=== PATIENT | male | born 2000 | race Caucasian/White ===

== ENCOUNTER 2018-05-21 22:39 | Emergency (ER) | payer MEDICAID ==
[2018-05-21 22:39] VITALS: BMI 22.6
[2018-05-21 22:48] VITALS: O2SAT 99
[2018-05-21] MEDS ORDERED: Amoxicillin-Clav 875-125 mg Tab PO STA (23:36)
--- NOTE | 2018-05-21 23:36 | C.PDOC ---
History Of Present Illness 17 yo male presents to the ED for evaluation of right-sided earache that has been gradually tis morning. He admits to also having a sore throat and right neck swelling/pain for the past few days. patient denies high fever, ZAYAS, dizziness, vertigo, ear discharge, drooling, cough, dyspnea, SOB, wheezing, abd. pain, N/V, denies any other active complaints. Ambulate to ED for evaluation, not in any apparent distress. Time Seen by Provider: 05/21/18 22:40 Chief Complaint (Nursing): ENT Problem History Per: Patient Onset/Duration Of Symptoms: Hrs Current Symptoms Are (Timing): Still Present Quality (Mouth/Throat): Other (sore throat) Past Medical History Reviewed: Historical Data, Nursing Documentation, Vital Signs Vital Signs: Last Vital Signs Temp 97.9 F 05/22/18 00:12 Pulse 71 05/22/18 00:12 Resp 18 05/22/18 00:12 BP 115/71 05/22/18 00:12 Pulse Ox 99 05/22/18 01:11 - Medical History PMH: Asthma Surgical History: No Surg Hx - [facility] Procedures ADENOIDECTOMY (08/09/13) SUTURE OF LIP LACERATION (03/17/14) Family History: States: Unknown Family Hx - Social History Hx Tobacco Use: No Hx Alcohol Use: No Hx Substance Use: No - Immunization History Hx Tetanus Toxoid Vaccination: Yes Hx Influenza Vaccination: Yes Hx Pneumococcal Vaccination: Yes Review Of Systems Except As Marked, All Systems Reviewed And Found Negative. Constitutional: Negative for: Fever ENT: Positive for: Ear Pain, Throat Pain. Negative for: Ear Discharge, Nose Discharge Cardiovascular: Negative for: Chest Pain, Palpitations Respiratory: Negative for: Cough, Shortness of Breath, Wheezing Gastrointestinal: Negative for: Nausea, Vomiting, Abdominal Pain, Diarrhea Genitourinary: Negative for: Dysuria, Incontinence Skin: Negative for: Rash Neurological: Negative for: Weakness, Numbness, Headache, Dizziness Physical Exam - Physical Exam Appears: Well, Non-toxic, No Acute Distress Skin: Normal Color, Warm, Dry, No Rash Eye(s): bilateral: PERRL Ear(s): Right: TM Obscured By Wax (no canal edema or erythema, no discharge.), Bilateral: Other (NO mastoid tenderness B/L) Nose: No Flaring, No Discharge Oral Mucosa: Moist, No Drooling Tongue: Normal Appearing Lips: Normal Appearing Throat: Erythema (pharyngeal erythema), No Exudate, No Drooling Neck: Normal ROM, Trachea Midline, Supple, Other ((-) meningeal sign) Lymphatic: Adenopathy (Right anterior cervical. NO edema or erythema.) Cardiovascular: Rhythm Regular Respiratory: No Decreased Breath Sounds, No Accessory Muscle Use, No Stridor, No Wheezing Gastrointestinal/Abdominal: Soft, No Tenderness Extremity: Normal ROM Neurological/Psych: Oriented x3, Normal Speech ED Course And Treatment O2 Sat by Pulse Oximetry: 99 (RA) Pulse Ox Interpretation: Normal Progress Note: Patient was given Amoxicillin (10 mg PO) and Motrin (600 mg PO) in ED. On re-eavluation, pt appears improved. Afebrile, hemodynamicaly stable. NOn-toxic, tolerate Po well in Ed. PulseOx 100% RA. ENT: exam c/w Right cerumen impaction. No ear canal edema or erythema, no mastoid tenderness/ edema/erythema. Mod pharyngeal edema and erythema. uvual midline. Right ante cervical lymphodenopathy. Neck: SUpple, (-) meningeal sign. Lungs: CTA B/L, BS equal B/L. Abd: Benign. neurologicaly intact. Pt has lcinical findings c/ w acute pharyngitis. Pt advised and ref. to F/u with PMD, ENT in 2-3 days for re-eval. return to ED if any worsening or new changes. Disposition Counseled Patient/Family Regarding: Diagnosis, Need For Followup, Rx Given - Disposition Referrals: Etienne Martinez MD [Staff Provider] - Disposition: HOME/ ROUTINE Disposition Time: 23:36 Condition: STABLE Additional Instructions: Encourage fluids Take medication as prescribed Follow up with PMD, ENT In 2-3 days for re-evaluation. return to ED if any worsening or new changes. Prescriptions: Amoxicillin/Clavulanate [Augmentin 875 MG-125 MG] 1 tab PO BID #14 tab Carbamide Peroxide [Debrox] 2 drop OT DAILY #1 bottle Ibuprofen [Motrin] 1 tab PO TID PRN #30 tab PRN Reason: Pain Instructions: Ear Wax Impaction, Sore Throat, Adult (DC) Forms: [employer] (Tunisian) - Clinical Impression Clinical Impression: Pharyngitis, Cerumen impaction - PA / DIE CUTTER OPERATOR / Resident Statement MD/DO has reviewed & agrees with the documentation as recorded. - Scribe Statement The provider has reviewed the documentation as recorded by the Scribe (Adalgisa Rendon) All medical record entries made by the Scribe were at my direction and personally dictated by me. I have reviewed the chart and agree that the record accurately reflects my personal performance of the history, physical exam, medical decision making, and the department course for this patient. I have also personally directed, reviewed, and agree with the discharge instructions and disposition.
[2018-05-21] MEDS ORDERED: Amoxicillin-Clav 875-125 mg Tab PO ONE (23:50)
[2018-05-22 00:14] VITALS: BP 115/71; PULSE 71; RESP 18; TEMP 97.9
== END 2018-05-22 00:14 | disposition home or self-care (01) ==
LOC: C.ER 22:39
DX: H61.21 Impacted cerumen, right ear (principal); J02.9 Acute pharyngitis, unspecified

== ENCOUNTER 2018-08-22 21:34 | Emergency (ER) | payer MEDICAID ==
[2018-08-22 21:34] VITALS: BMI 22.6
--- NOTE | 2018-08-22 22:01 | C.PDOC ---
History Of Present Illness 18 year old male presents to the ED c/o abdominal pain, nausea, vomit since yesterday. Patient reports he ate Nepali food yesterday and since then he has been unable to keep anything down. Patient denies fever, chills, diarrhea, dys uria, hematuria, recent travel, sick contacts. Time Seen by Provider: 08/22/18 22:00 Chief Complaint (Nursing): GI Problem History Per: Patient History/Exam Limitations: no limitations Onset/Duration Of Symptoms: Days Current Symptoms Are (Timing): Still Present Context: Food Location Of Pain/Discomfort: Epigastric Quality Of Discomfort: "Pain" Associated Symptoms: Nausea, Vomiting, Loss Of Appetite. denies: Diarrhea, Urinary Symptoms Exacerbating Factors: Food Recent travel outside of the [place]: No Additional History Per: Patient Past Medical History Reviewed: Historical Data, Nursing Documentation, Vital Signs Vital Signs: Last Vital Signs Temp 99.0 F 08/22/18 21:36 Pulse 116 H 08/22/18 21:36 Resp 18 08/22/18 21:36 BP 149/71 08/22/18 21:36 Pulse Ox 98 08/22/18 21:36 - Medical History PMH: Asthma Surgical History: No Surg Hx - [facility] Procedures ADENOIDECTOMY (08/09/13) SUTURE OF LIP LACERATION (03/17/14) Family History: States: Unknown Family Hx - Social History Hx Tobacco Use: No Hx Alcohol Use: No Hx Substance Use: Yes - Immunization History Hx Tetanus Toxoid Vaccination: Yes Hx Influenza Vaccination: No Hx Pneumococcal Vaccination: Yes Review Of Systems Constitutional: Negative for: Fever, Chills Cardiovascular: Negative for: Chest Pain Respiratory: Negative for: Cough, Shortness of Breath Gastrointestinal: Positive for: Nausea, Vomiting, Abdominal Pain. Negative for: Diarrhea Genitourinary: Negative for: Dysuria, Hematuria Skin: Negative for: Rash Neurological: Negative for: Weakness, Numbness Physical Exam - Physical Exam Appears: Non-toxic, No Acute Distress Skin: Warm, Dry Head: Normacephalic Eye(s): bilateral: Normal Inspection Oral Mucosa: Moist Neck: Supple Chest: Symmetrical Cardiovascular: Rhythm Regular Respiratory: No Rales, No Rhonchi, No Wheezing Gastrointestinal/Abdominal: Soft, Tenderness (mild epigastric), No Guarding, No Rebound Extremity: Bilateral: Atraumatic, Normal Color And Temperature, Normal ROM Neurological/Psych: Oriented x3, Normal Speech, Normal Cognition Gait: Steady ED Course And Treatment - Laboratory Results Result Diagrams: 08/22/18 22:25 08/22/18 22:25 O2 Sat by Pulse Oximetry: 98 (ON RA) Pulse Ox Interpretation: Normal Progress Note: Plan: - Labs. - Protonix 40 mg IVP. - IV fludis. - Zofran 4 mg IVP. - UA Reevaluation Time: 23:40 Reassessment Condition: Improved Disposition Counseled Patient/Family Regarding: Studies Performed, Diagnosis, Need For Followup, Rx Given - Disposition Referrals: Lucía Hernandez MD [Staff Provider] - Disposition: HOME/ ROUTINE Disposition Time: 22:00 Condition: FAIR Additional Instructions: Please return if symptoms recur Prescriptions: Ondansetron ODT [Zofran ODT] 1 odt PO BID PRN #6 odt PRN Reason: Nausea/Vomiting Instructions: Food Poisoning (DC) Forms: [employer] (Azeri) - Clinical Impression Clinical Impression: Food poisoning - Scribe Statement The provider has reviewed the documentation as recorded by the Scribe Frankie Rubio All medical record entries made by the Scribe were at my direction and personally dictated by me. I have reviewed the chart and agree that the record accurately reflects my personal performance of the history, physical exam, medical decision making, and the department course for this patient. I have also personally directed, reviewed, and agree with the discharge instructions and disposition.
[2018-08-22] MEDS ORDERED: Sodium Chloride 0.9% 2,000 ML IV ONE (22:02)
[2018-08-22 22:05] VITALS: O2SAT 98
[2018-08-22 22:20] LABS: URINE BILIRUBIN NEGATIVE (NEGATIVE); URINE BLOOD NEGATIVE (NEGATIVE); URINE CLARITY Clear (Clear); URINE COLOR Yellow (YELLOW); URINE GLUCOSE (UA) NORMAL (Normal); URINE LEUKOCYTE ESTERASE NEG Leu/uL (Negative); URINE PROTEIN 1+ mg/dL (NEGATIVE)
[2018-08-22 22:33] LABS: BARBITURATES, UR NEGATIVE (NEGATIVE); BENZODIAZEPINES, UR NEGATIVE (NEGATIVE); OPIATES, UR NEGATIVE (NEGATIVE); PHENCYCLIDINE, UR NEGATIVE (NEGATIVE)
[2018-08-22 22:37] LABS: BASO % 0.4 % (0.0-2.0); EOS # 0.3 K/uL (0.0-0.7); EOS % 2.5 % (0.0-4.0); HEMOGLOBIN 15.6 g/dL (12.0-18.0); MEAN CORPUSCULAR HEMOGLOBIN 28.4 pg (27.0-31.0); MEAN CORPUSCULAR HGB CONC 33.8 g/dL (33.0-37.0); MEAN PLATELET VOLUME 8.6 fL (7.2-11.7); MONO # 0.8 K/uL (0.0-0.8); MONO % 7.4 % (0.0-10.0); NEUT # 8.2 K/uL (1.8-7.0); NEUT % 79.7 % (50.0-75.0); RBC 5.5 Mil/uL (4.40-5.90); RED CELL DISTRIBUTION WIDTH 13.4 % (11.5-14.5); WHITE BLOOD COUNT 10.3 K/uL (4.8-10.8)
[2018-08-22 22:43] LABS: ALB/GLOB RATIO 1.3 (1.0-2.1); ALT/SGPT 21 U/L (21-72); AST/SGOT 25 U/L (17-59); BLOOD UREA NITROGEN 17 mg/dL (9-20); CALCIUM 9.7 mg/dl (8.6-10.4); GFR NON-AFRICAN AMERICAN > 60; LIPASE 23 U/L (23-300)
[2018-08-22 23:45] VITALS: BP 136/77; PULSE 84; RESP 20; TEMP 98.8
== END 2018-08-22 23:47 | disposition home or self-care (01) ==
LOC: C.ER 21:34
DX: T62.91XA Toxic effect of unspecified noxious substance eaten as food, accidental (unintentional), initial encounter (principal); Y92.89 Other specified places as the place of occurrence of the external cause
CPT/HCPCS: 80053; 80324; 80345; 80346; 80349; 80353; 80358; 80361; 81001; 83690; 83992; 85025; 96361; 96374; 96375; 99284; C9113; J2405; J7030